=== PATIENT | female | born 1965 | race Caucasian/White ===

== ENCOUNTER 2024-12-31 11:21 | Inpatient (IN) ==
--- NOTE | 2024-12-31 11:52 | Emergency Department Note ---
Impression & Plan Syncope, Elevated troponin, Hypoxia ED Provider Note NAME: JADE NORIEGA AGE: 59 SEX: F : 1965 ARRIVES VIA: Ambulance INFORMANT: Patient, ED PROVIDER(S): Dima Sagastume MD CHIEF COMPLAINT: Unresponsive MEDICAL DECISION MAKING: Patient presents due to concern for an episode of being unresponsive. IV was established and blood work obtained along with chest x-ray and CT head. Bio fire also obtained as the patient was hypoxemic. Patient's blood work shows a normal white count hemoglobin and platelet count. The patient's kidney function was unremarkable. Glucose of 149. The patient's initial troponin was 50.3. Urinalysis does not show evidence of obvious infection leuks and whites present but no bacteria or nitrates. Patient denies any urinary symptoms. UDS negative. Patient's chest x-ray and CT head are negative. Currently denies any chest pain. I did speak with the on-call hospitalist service after informing the patient of the findings. Patient was admitted by Dr. Anderson. Critical Care: I have personally spent 37 minutes of critical care time in direct management of this patient. This includes bedside care, interpretation of diagnostic studies, and testing, discussion with consultants, patient, and family members, and other require inpatient management activities. This 37 minutes is in excess of all separately billable procedures. Discussion w/ other healthcare providers: Kenneth Anderson inpatient medicine service Prior /Outside records reviewed: None Differential diagnosis: Vasovagal event, dehydration, infection, hypoglycemia, electrolyte abnormalities, arrhythmia, pulmonary embolism, seizure among others were considered. Diagnostics, as interpreted by me: ECG:Sinus tachycardia, rate of 111, normal intervals, left axis deviation no obvious ST elevations. No prior EKGs for comparison. Cardiac monitoring: An order was placed for continuous cardiac monitoring. The monitor shows a rate of 95 with regular rhythm. Patient was placed on pulse oximetry Medical decision rules: None Imaging studies: I informally interpreted the patient's chest x-ray does not show obvious pneumonia or pneumothorax with formal report to follow. HPI: Patient presents due to concern for syncope. Reportedly was at her desk snoring unresponsive for several minutes. The patient denies any presyncopal symptoms including dizziness lightheadedness palpitations irregular heartbeat or skipping a beat. 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 No reported falls or trauma as this occurred while she was seated at a desk. She denies any tongue biting or incontinence. She has not seen a physician in 30 years and has no known past medical history. Patient denies any alcohol tobacco or drug use. Patient was reportedly hypoxemic at 89% was placed on nasal cannula. Patient's BSG prior to arrival was in the 150s. Patient denies any prior history of DVT or PE. 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 Denies tobacco use. HOME MEDICATIONS: See Below ALLERGIES: See Below VITALS: See Below PHYSICAL EXAMINATION: GENERAL: NAD, non-toxic. Wearing glasses, nasal cannula in place. EYE EXAM: Normal conjunctiva. PERRL, no anisocoria and EOM's grossly intact w/o pain. OROPHARYNX: Moist mucus membranes, grossly normal dentition. NECK: Trachea midline, no stridor. LUNGS: Clear to auscultation. Normal chest wall mechanics. HEART: NSR, no MRG. ABDOMEN: Abdomen soft, non-tender, no masses, no rebound or guarding. BACK: No CVA TTP. SKIN: No rashes and no bruising. UPPER EXTREMITIES: Upper extremities are grossly normal. LOWER EXTREMITIES: Grossly normal, no edema. Negative Homans' sign bilaterally. NEURO EXAM: Awake and alert, follows commands, no obvious facial asymmetry, normal speech, moves all 4 extremities. Past Med/Surg History Problem List (Updated 12/31/24 @ 19:14 by Dima Sagastume MD) Hypoxia (Acute) Elevated troponin (Acute) Syncope (Acute) Social History Smoking Status: Never smoker Hx Alcohol Use: No Hx Substance Use: No Preferred Language: Urdu Communication Ability: Effective Retail Loss Prevention Investigator Required: No Beliefs That Will Affect Care: None Current Living Situation: Spouse Feels Safe at Home: Yes Safety Concerns: Feels Safe At This Time Assistive Devices: Contacts Allergies Allergies Allergy/AdvReac Type Severity Reaction Status Date / Time No Known Allergies Allergy Unverified 12/31/24 14:10 Home Meds Home Medications Medication Instructions Recorded Confirmed No Known Home Medications 12/31/24 12/31/24 Results & Data (ED) Vital Signs Vital Signs - 24 hr 12/31/24 11:37 12/31/24 11:41 12/31/24 11:41 Temperature 36.9 C Temperature Source Oral Pulse Rate 120 H 116 H Pulse Rate [Apical] Respiratory Rate 20 Respiratory Effort / Characteristics Respiratory Depth Blood Pressure 159/87 H Blood Pressure [Left Arm] Blood Pressure Mean 111 Blood Pressure Mean [Left Arm] Pulse Oximetry 94 88 L Oxygen Delivery Method Nasal Cannula Room Air Nasal Cannula Oxygen Flow Rate 2 0 Sepsis Recent Fever Within 48 Hours No Sepsis New/Unexplained Change in Mental Status No Sepsis Action Taken by Nursing No Action Required Oxygen Flow Rate - Titration 2 Pulse Oximetry Post Tiitration 94 12/31/24 11:48 12/31/24 13:42 Temperature Temperature Source Pulse Rate Pulse Rate [Apical] 98 H Respiratory Rate 18 Respiratory Effort / Characteristics Non-Labored Spontaneous Respiratory Depth Normal Blood Pressure Blood Pressure [Left Arm] 136/109 H Blood Pressure Mean Blood Pressure Mean [Left Arm] 118 Pulse Oximetry 92 94 Oxygen Delivery Method Nasal Cannula Room Air Oxygen Flow Rate 2 Sepsis Recent Fever Within 48 Hours Sepsis New/Unexplained Change in Mental Status Sepsis Action Taken by Nursing Oxygen Flow Rate - Titration Pulse Oximetry Post Tiitration Home Medications Current Medication List: was personally reviewed by me Laboratory Data Attestation: I reviewed the patient's lab results. 12/31/24 11:40 12/31/24 11:40 Lab Results 12/31/24 12/31/24 Range/Units 11:40 12:55 WBC 7.43 (4.8-10.8) K/ul RBC 4.84 (4.20-5.40) M/uL Hgb 15.3 (12.0-16.0) g/dl Hct 45.0 (37.0-47.0) % MCV 93.0 (80.0-100.0) fL MCH 31.6 (25.0-34.0) pg MCHC 34.0 (32.0-36.0) g/dL RDW Std Deviation 42.0 (36.4-46.3) fL RDW Coeff of Sindy 12.1 (11.5-14.5) % Plt Count 284 (130-400) K/uL MPV 10.2 (9.4-12.4) fL Immature Gran % (Auto) 0.3 % Neut % (Auto) 42.1 % Lymph % (Auto) 47.9 % [place] % (Auto) 6.1 % Eos % (Auto) 2.7 % Baso % (Auto) 0.9 % Neut # (Auto) 3.13 (1.40-6.50) K/uL Lymph # (Auto) 3.56 H (1.20-3.40) K/uL [place] # (Auto) 0.45 (0.11-0.59) K/uL Eos # (Auto) 0.20 (0.00-0.50) K/uL Baso # (Auto) 0.07 (0.00-0.20) K/uL Immature Gran # (Auto) 0.02 (0.01-0.20) K/uL D-Dimer 1430 H* (0-500) ug/L FEU Sodium 138 (136-145) mmol/L Potassium 3.5 (3.5-5.1) mmol/L Chloride 102 (98-107) mmol/L Carbon Dioxide 20 L (21-32) mmol/L Anion Gap 16 H (3-11) BUN 10 (6-23) mg/dl Creatinine 0.96 (0.6-1.2) mg/dl Est Cr Clr Drug Dosing 64.0 ml/min eGFR 67.73 BUN/Creatinine Ratio 10.4 (10-20) Glucose 149 H (70-99(Fasting)) mg/dl Calcium 9.3 (8.6-10.3) mg/dl Magnesium 2.2 (1.7-2.4) mg/dl Total Bilirubin 0.8 (0.2-1.0) mg/dl AST 37 (13-39) U/L ALT 38 (7-52) U/L Alkaline Phosphatase 70 (34-104) U/L Total Protein 8.2 (6.0-8.3) gm/dl Albumin 4.5 (3.4-5.0) gm/dl Globulin 3.7 (2.5-4.0) gm/dl Albumin/Globulin Ratio 1.2 (0.9-2) Urine Color Yellow Urine Appearance Clear (Clear) Urine pH 5.5 (4.5-7.5) Ur Specific [place] 1.013 (1.000-1.030) Urine Protein 1+ H (Negative) Urine Glucose (UA) Negative (Negative) Urine Ketones Trace H (Negative) Urine Blood Negative (Negative) Urine Nitrite Negative (Negative) Urine Bilirubin Negative (Negative) Urine Urobilinogen Negative (Negative) Ur Leukocyte Esterase 2+ H (Negative) Urine WBC (Auto) 6-10 H (0-5) /hpf Urine RBC (Auto) 0-2 (0-2) /hpf U Hyaline Cast (Auto) 3-5 H (0-2) /lpf U Epithel Cells (Auto) 0-2 (0-2) /hpf Urine Bacteria (Auto) None Seen (None Seen) Urine Comment Urine Opiates Screen Neg (Neg) Ur Methadone, Qual Neg (Neg) Urine Fentanyl Screen Neg (Neg) Urine Barbiturates Neg (Neg) Ur Phencyclidine (PCP) Neg (Neg) U Amphetamin/Meth Scrn Neg (Neg) MDMA (Ecstasy) Screen Neg (Neg) U Benzodiazepines Scrn Neg (Neg) Ur Cocaine Metabolite Neg (Neg) U Marijuana (THC) Screen Neg (Neg) Administered Medications Sodium Chloride (Nss) 1,000 mls @ 75 mls/hr IV .[id number] VANDANA Stop: 01/03/25 16:29 Last Admin: 12/31/24 17:12 Dose: 75 mls/hr Documented By: REX Discontinued Medications Ioversol (Optiray 320 125ml) 115 ml IV ONCE ONE Stop: 12/31/24 15:52 Last Admin: 12/31/24 15:51 Dose: 115 ml Documented By: TOYA Imaging Data Radiologist's Impression: Chest X-Ray 12/31/24 11:52 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 No consolidation or pleural effusion. No pneumothorax. IMPRESSION: No acute findings. ACT 112: Negative or not required by law. Electronically signed by: Alfredo Prajapati M.D. 12/31/2024 12:[address] 12/31/24 11:52 CT SCAN OF THE BRAIN WITHOUT IV CONTRAST CLINICAL HISTORY: Syncope. COMPARISON STUDY: None. TECHNIQUE: Unenhanced axial CT scan of the brain was performed from the vertex to the skull base. A dose lowering technique was utilized adhering to the principles of ALARA. CT DOSE: 547.75 mGy.cm FINDINGS: Brain parenchyma: No acute intracranial hemorrhage, midline shift or mass effect is present. Stovall-white matter differentiation is preserved. There are no extra- axial fluid collections. There are no findings to suggest acute dural sinus thrombosis or acute territorial infarct. Ventricles, sulci, cisterns: There is no hydrocephalus. The basal cisterns are patent. Calvarium: There are no calvarial fractures. Sinuses and mastoids: The visualized paranasal sinuses are clear. The mastoid air cells are well pneumatized. Orbits: The bony orbits are grossly intact. IMPRESSION: No acute intracranial findings. ACT 112: Negative or not required by law. Electronically signed by: Luisito West M.D. 12/31/2024 12:47 PM Discharge Plan Visit Data Chief Complaint: Syncope ED Provider: Dima Sagastume Discharge Problem: Syncope, Elevated troponin, Hypoxia Patient Disposition: Admitted As Inpatient Condition: Good Discharge Instructions Interventions: ED Discharge Assessment Last Done: 12/31/24 15:42 Discharge Problem: Syncope Qualifiers: Syncope type: unspecified Qualified Code(s): R55 - Syncope and collapse
[2024-12-31 12:06] LABS: Hematocrit (blood only) 45.0 % (37.0-47.0); Hemoglobin 15.3 g/dl (12.0-16.0); Immature Granulocytes # (auto) 0.02 K/uL (0.01-0.20); Immature Granulocytes % (auto) 0.3 %; Mean Corpuscular Hemoglobin 31.6 pg (25.0-34.0); Mean Corpuscular Volume 93.0 fL (80.0-100.0); Platelet Count 284 K/uL (130-400); RDW Standard Deviation 42.0 fL (36.4-46.3); Red Blood Count 4.84 M/uL (4.20-5.40); White Blood Count 7.43 K/ul (4.8-10.8)
[2024-12-31 12:24] LABS: Alanine Aminotransferase 38.0 U/L (7-52); Albumin Globulin Ratio 1.2 (0.9-2); Alkaline Phosphatase 70.0 U/L (34-104); Anion Gap 16.0 (3-11); Bilirubin,Total 0.8 mg/dl (0.2-1.0); Blood Urea Nitrogen 10.0 mg/dl (6-23); Calcium 9.3 mg/dl (8.6-10.3); Carbon Dioxide 20.0 mmol/L (21-32); Chloride 102.0 mmol/L (98-107); Creatinine Clr Calc Pharmacy 64.0 ml/min; Globulin 3.7 gm/dl (2.5-4.0); Glucose 149.0 mg/dl (70-99(Fasting)); Magnesium 2.2 mg/dl (1.7-2.4); Potassium 3.5 mmol/L (3.5-5.1); Sodium 138.0 mmol/L (136-145); Total Protein 8.2 gm/dl (6.0-8.3)
--- NOTE | 2024-12-31 12:32 | XRay Report ---
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 No consolidation or pleural effusion. No p neumothorax. IMPRESSION: No acute findings. ACT 112: Negative or not required by law. Electronically signed by: Alfredo Prajapati M.D. 12/31/2024 12:31 PM
--- NOTE | 2024-12-31 12:49 | CT Scan Report ---
CT SCAN OF THE BRAIN WITHOUT IV CONTRAST CLINICAL HISTORY: Syncope. COMPARISON STUDY: None. TECHNIQUE: Unenhanced axial CT scan of the brain was performed from the vertex to the skull base. A dose lowering technique was utilized adhering to the principles of ALARA. CT DOSE: 547.75 mGy.cm FINDINGS: Brain parenchyma: No acute intracranial hemorrhage, midline shift or mass effect is present. Stovall-whi te matter differentiation is preserved. There are no extra-axial fluid collections. There are no find ings to suggest acute dural sinus thrombosis or acute territorial infarct. Ventricles, sulci, cisterns: There is no hydrocephalus. The basal cisterns are patent. Calvarium: There are no calvarial fractures. Sinuses and mastoids: The visualized paranasal sinuses are clear. The mastoid air cells are well pneu matized. Orbits: The bony orbits are grossly intact. IMPRESSION: No acute intracranial findings. ACT 112: Negative or not required by law. Electronically signed by: Luisito West M.D. 12/31/2024 12:47 PM
[2024-12-31 13:08] LABS: Appearance Urine Clear (Clear); Bacteria Urine Automated None Seen (None Seen); Epithelial Cell Urine Auto 0-2 /hpf (0-2); Glucose Urine UA Negative (Negative); RBC Urine Automated 0-2 /hpf (0-2)
[2024-12-31 13:47] LABS: Amphetamines+Metham, Urine Neg (Neg); MDMA (Ecstacy), Urine Neg (Neg); Marijuana, Urine Neg (Neg)
[2024-12-31 14:40] LABS: Base Excess VBG 2.4 mEq/L; HCO3 VBG 28 mmol/L; Oxygen Saturation VBG < 60.0 %; PCO2 VBG 45 mmHg (38-50); PO2 VBG 22 mmHg; pH VBG 7.40 (7.36-7.41)
--- NOTE | 2024-12-31 14:48 | History & Physical Report ---
Date of Service December 31, 2024 Assessment & Plan (1) Syncope: Plan: 59 year old female with no known past medical history presenting with syncopal episode. SYNCOPE presents with syncopal episode with no prodrome no signs of underlying infection at this time r/o Acute PE D dimer 1400 check CTA chest Doppler US of legs if above negative r/o Arrhythmia EKG Sinus rhythm Trop negative echo ordered will need Zio patch monitor if inpatient Telemetry does not reveal arrhythmia r/o Neurologic etiology CT head wo contrast: no acute CVA will need Brain MRI, MRA tomorrow (patient already receiving IV contrast dye today) EEG r/o Orthostasis Ortho VS r/o possible underlying Sleep Apnea, Nocturnal Hypoxemia will order nocturnal Pulse Ox HIGH ANION GAP anion gap 16, HCO3 20 VBG 7.4/45/22/28 BSG 149 lactic acid normal check salicylate, methanol, etc for completion EPISODE OF HYPOXIA 88% on room air, improved to 99% on room air with no intervention CXR: unrevealing CT angio chest ordered DVT prophylaxis Lovenox SC daily Full Code Disposition pending lives at home History of Present Illness Chief Complaint: syncope Primary Care Provider: NO PCP 59 year old female with no known past medical history presenting with syncopal episode. As per patient, she does have any past medical history and is not taking any medications on a regular basis. Patient states she has been feeling fine- no fever/chills, headache, dizziness, sore throat, cough, shortness of breath, abdominal pain, nausea/vomiting, diarrhea, problems with urination. She denies having episodes of lightheadedness, palpitations, presyncope or syncope. 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 She was sitting on her chair doing deskwork and the next thing she recalls is waking up and seeing EMS crew and the police surrounding her. She was somewhat confused initially but was oriented x 3 afterwards. She does not recall feeling dizzy, shortness of breath, or having chest pain, palpitations, before the syncopal event. At the ER, VS were 159/87, HR 116, 88% on room air, 36.09. Patient's o2 sats improved later on to 99% on room air. trop negative EKG no signs of acute ischemia CT head: no acute findings CXR: no infiltrates, effusion UA: no signs of UTI Anion Gap 16 CO2 20 7.4/45/22/28 On my exam, patient seen resting in bed, comfortable, not in distress, in good spirits. States she feels fine overall. Denies headache, dizziness, shortness of breath, chest pain, palpitations, etc No other symptoms. Allergies Allergy/AdvReac Type Severity Reaction Status Date / Time No Known Allergies Allergy Unverified 12/31/24 14:10 Home Medications Medication Instructions Recorded Confirmed Type No Known Home Medications 12/31/24 12/31/24 History Past Med/Surg History Problem List (Updated 12/31/24 @ 16:00 by Bartolome Anderson MD) Syncope Social History Smoking Status: Never smoker Preferred Language: [place] Feels Safe at Home: Yes Review of Systems Review of Systems: all noted and negative except for above Physical Exam Physical Exam: General- oriented x 3, not in distress, speaks in sentences with no effort or accessory muscle use Head- atraumatic Eyes- PERRL, EOMI, anicteric ENT- oropharynx clear Neck- supple, no JVD, no adenopathy, no thyromegaly; carotids +2/2, no bruits appreciated Lungs- clear to auscultation bilaterally, no rales/wheezes Heart- normal rate, regular rhythm; no murmur, no gallop, no rub appreciated Abdomen- normal bowel sounds, nondistended, soft, nontender, no masses or hepatosplenomegaly Extremities- no pretibial edema, no calf tenderness; peripheral pulses intact Neuro- alert, oriented x 3; CN 2-12 grossly intact; motor 5/5 bilaterally;sensation 100% on all extremities; no other gross focal neurologic deficits Skin- warm & dry Results & Data Results & Data Vital Signs (Past 12 Hours) Vital Signs Temp Pulse Pulse Resp BP BP Pulse Ox 12/31/24 13:42 98 H 18 136/109 H 94 12/31/24 11:48 92 12/31/24 11:41 88 L 12/31/24 11:41 36.9 C 116 H 20 159/87 H 94 12/31/24 11:37 120 H O2 Del Method O2 Flow Rate 12/31/24 13:42 Room Air 12/31/24 11:48 Nasal Cannula 2 12/31/24 11:41 Room Air, Nasal Cannula 0 12/31/24 11:41 Nasal Cannula 2 12/31/24 11:37 all noted and reviewed including below Code Status & VTE Plan VTE Prophylaxis Plan VTE Prophylaxis will be ordered: Yes
[2024-12-31] MEDS: OPTIRAY 320 125ml IV ONE (15:51)
[2024-12-31] MEDS ORDERED: ONDANSETRON INJ 2 MG/ML 2 ML VIAL IV PRN (16:04)
--- NOTE | 2024-12-31 16:51 | CT Scan Report ---
Clinical history: Syncope Technique: Axial computed tomography images were obtained of the brain after the administration of intravenous contrast according to the CT angiogram protocol Findings: No definite stenosis or aneurysm is seen of the anterior, middle, or posterior cerebral artery circulations. The visualized vertebral arteries and the basilar artery appear unremarkable Impression: No definite stenosis or aneurysm of the intracranial arteries Electronically signed by Donny Forte 12-31-2024 4:51 PM
--- NOTE | 2024-12-31 17:04 | CT Scan Report ---
Clinical history: Syncope Technique: Axial computed tomography images were obtained of the neck after the administration of intravenous contrast according to the CT angiogram protocol Findings: No stenosis is seen of the common carotid arteries bilaterally. The carotid bulbs are patent. The remainder of the internal carotid arteries appear patent bilaterally. No stenosis of the external carotid arteries is seen The vertebral arteries are patent bilaterally with no significant stenosis seen. The visualized thoracic aorta appears unremarkable Impression: No definite stenosis of the neck arteries Electronically signed by Donny Forte 12-31-2024 5:04 PM
--- NOTE | 2024-12-31 17:06 | CT Scan Report ---
Technique: Axial computed tomography images were obtained of the chest after the administration of intravenous contrast according to the CT angiogram protocol Findings: There is no definite sign of pulmonary embolism. There is subsegmental atelectasis in both lower lobes. The lungs otherwise appear clear without infiltrate or mass. There is no pleural effusion or pneumothorax. There is no sign of pulmonary fibrosis or other diffuse interstitial process. No endobronchial lesion is seen There is no mediastinal, hilar, or axillary adenopathy. The thoracic aorta appears unremarkable with no sign of aneurysm or dissection. There is no pericardial effusion The visualized upper abdomen appears unremarkable. No fracture is seen. No focal osseous lesion is evident Impression: 1. No definite sign of pulmonary embolism 2. Mild bilateral lower lobe atelectasis Electronically signed by Donny Forte 12-31-2024 5:06 PM
[2024-12-31] MEDS: SODIUM CHLORIDE 0.9% 1,000 ML IV SCH (17:12)
[2024-12-31] MEDS: ACETAMINOPHEN 325 MG TAB PO PRN (19:52)
--- NOTE | 2024-12-31 21:44 | Ultrasound Report ---
EXAM: US venous doppler LE BI CLINICAL HISTORY: Elevated d-dimer R/O DVT. TECHNIQUE: Ultrasound examination of bilateral lower extremity veins was performed in real time and duplex. One or more of the following were performed- spectral analysis, resistive index, waveform analysis, and pulsed Doppler. COMPARISON: None. FINDINGS: Normal phasic, non-pulsatile, and spontaneous flow is noted in the bilateral common femoral, Great saphenous vein, profunda, femoral, popliteal, anterior, and posterior tibial and peroneal veins. Right peroneal vein with limited views however, flow on color Doppler noted, possibly due to local edema. Visualized veins of both lower extremities demonstrate normal compressibility. No sonographic evidence of acute deep vein thrombosis (DVT) is detected in the visualized veins of both lower extremities. Compression and Augmentation: All evaluated veins compress fully with the applied transducer pressure. Augmentation of venous flow is noted with distal compression. Additional Findings: No evidence of intraluminal thrombus. IMPRESSION: No sonographic evidence of acute DVT was detected in bilaterally visualized and lower extremity arteries at this time of exam. Disclaimer: DVT could be missed early in the disease when clot burden is minimal. For patients with moderate and high pretest probability of DVT and negative ultrasound, the [employer] clinical guidelines recommend testing with a D-dimer assay or repeat ultrasound in 5-7 days. If symptoms worsen, the Society of radiologists in ultrasound recommends repeating ultrasound even earlier. Electronically signed by Zhao Barr 12-31-2024 9:43 PM
[2025-01-01 05:32] LABS: Appearance Urine Clear (Clear); Bacteria Urine Automated None Seen (None Seen); Cast Urine Automated 0-2 /lpf (0-2); Epithelial Cell Urine Auto 0-2 /hpf (0-2); Glucose Urine UA Negative (Negative); RBC Urine Automated 0-2 /hpf (0-2)
[2025-01-01 06:57] LABS: Hematocrit (blood only) 39.7 % (37.0-47.0); Hemoglobin 13.7 g/dl (12.0-16.0); Immature Granulocytes # (auto) 0.02 K/uL (0.01-0.20); Immature Granulocytes % (auto) 0.3 %; Mean Corpuscular Hemoglobin 31.9 pg (25.0-34.0); Mean Corpuscular Volume 92.3 fL (80.0-100.0); Platelet Count 240 K/uL (130-400); RDW Standard Deviation 41.6 fL (36.4-46.3); Red Blood Count 4.30 M/uL (4.20-5.40); White Blood Count 7.33 K/ul (4.8-10.8)
[2025-01-01 07:26] LABS: Alanine Aminotransferase 28.0 U/L (7-52); Albumin Globulin Ratio 1.3 (0.9-2); Alkaline Phosphatase 56.0 U/L (34-104); Anion Gap 7.0 (3-11); Bilirubin,Total 1.3 mg/dl (0.2-1.0); Blood Urea Nitrogen 9.0 mg/dl (6-23); Calcium 8.6 mg/dl (8.6-10.3); Carbon Dioxide 26.0 mmol/L (21-32); Chloride 107.0 mmol/L (98-107); Creatinine Clr Calc Pharmacy 90.6 ml/min; Globulin 3.0 gm/dl (2.5-4.0); Glucose 120.0 mg/dl (70-99(Fasting)); Potassium 3.8 mmol/L (3.5-5.1); Sodium 140.0 mmol/L (136-145); Total Protein 6.8 gm/dl (6.0-8.3)
[2025-01-01 08:10] LABS: Hemoglobin A1C 5.7 % (4.5-5.6)
--- NOTE | 2025-01-01 14:28 | Hospitalist Progress Note ---
Date of Service January 01, 2025 Assessment & Plan (1) Syncope: Plan: 59 year old female with no known past medical history presenting with syncopal episode. SYNCOPE Presents with syncopal episode with no prodrome No signs of underlying infection at this time CTA of the chest did not show any pulmonary embolism, CTA of the neck and head did not show any stenosis, ultrasound of the legs no DVT and CT of the head no acute findings Neurologically intact without any significant symptoms since admission Awaiting EEG report and also MRI of the head Did not have any orthostatic changes or symptoms She has been ambulating in the hallway in the room without difficulties Did not have any arrhythmias and her echo has been unremarkable She will be discharged home this afternoon after the MRI has been completed Will have a Zio patch placement as an outpatient on discharge R/O possible underlying Sleep Apnea, Nocturnal Pulse Ox- has been negative Will advise outpatient polysomnography HIGH ANION GAP anion gap 16, HCO3 20 VBG 7.4/45/22/28 BSG 149 lactic acid normal check salicylate, methanol, etc for completion EPISODE OF HYPOXIA 88% on room air, improved to 99% on room air with no intervention CXR: unrevealing CT angio chest ordered- as above DVT prophylaxis Lovenox SC daily Full Code Disposition likely discharge this afternoon Admission and Anticipated Discharge Date Admission Date: December 31, 2024 Subjective 01/01/2025 The patient was seen and examined in the medical telemetry unit She was admitted with a syncopal episode that happened while she was working on her office desk She was not responding to command and was slumped on the desk does not remember if she lost any consciousness or not Has not had this kind of problem before and denies any symptoms on coming around Remained stable in the hospital Review of Systems Review of Systems: All systems reviewed and are unremarkable except as noted below Physical Exam Physical Exam: Sitting on a chair without any acute distress Constitutional: well developed, well nourished and + obese; not ill appearing Eyes: PERRL, conjunctivae normal, anicteric sclerae ENMT: external ear and nose normal, oropharynx normal Neck: trachea midline, no thyromegaly Respiratory: no respiratory distress Auscultation: lungs clear to auscultation bilaterally Cardiovascular: Rate/Rhythm: regular rate and regular rhythm; not tachycardic Heart Sounds: normal S1 and normal S2; no murmur Extremities: + edema (Trace edema bilaterally) Gastrointestinal (Abdomen): Inspection/Auscultation: normal bowel sounds; abdomen not distended Percussion/Palpation: abdomen soft; abdomen nontender Musculoskeletal: No acute arthritis involving any of the joint Neurologic: normal touch/pain/proprioception and moves all extremities; no focal motor deficits and not confused Psychiatric: A+Ox3, euthymic affect Lymphatic: no cervical or axillary lymphadenopathy Results & Data Results & Data Vital Signs (Past 12 Hours) Vital Signs Temp Pulse Pulse Pulse Resp BP Pulse Ox 01/01/25 13:49 90 01/01/25 11:47 36.8 C 84 16 160/85 H 96 01/01/25 07:39 37.3 C 82 16 134/86 96 01/01/25 07:16 74 01/01/25 02:19 74 Pulse Ox O2 Del Method O2 Del Method 01/01/25 13:49 01/01/25 11:47 Room Air 01/01/25 07:39 Room Air 01/01/25 07:16 01/01/25 02:19 93 Room Air Laboratory Results Short CBC 01/01/25 Range/Units 06:34 WBC 7.33 (4.8-10.8) K/ul Hgb 13.7 (12.0-16.0) g/dl Hct 39.7 (37.0-47.0) % Plt Count 240 (130-400) K/uL BMP 01/01/25 06:34 Sodium 140 Potassium 3.8 Chloride 107 Carbon Dioxide 26 BUN 9 Creatinine 0.77 Glucose 120 H Calcium 8.6 Liver Function 01/01/25 Range/Units 06:34 Total Bilirubin 1.3 H D (0.2-1.0) mg/dl AST 27 (13-39) U/L ALT 28 (7-52) U/L Alkaline Phosphatase 56 (34-104) U/L Albumin 3.8 (3.4-5.0) gm/dl Urine 01/01/25 Range/Units 02:30 Urine Color Yellow Urine Appearance Clear (Clear) Urine pH 6.0 (4.5-7.5) Ur Specific [place] 1.020 (1.000-1.030) Urine Protein Negative (Negative) Urine Glucose (UA) Negative (Negative) Medications Administered Current Inpatient Medications Acetaminophen (Acetaminophen 325 Mg Tab) 650 mg PO Q4H PRN PRN Reason: Pain or Fever Stop: 01/30/25 16:03 Last Admin: 12/31/24 19:52 Dose: 650 mg Sodium Chloride (Nss) 1,000 mls @ 75 mls/hr IV .[id number] VANDANA Stop: 01/03/25 16:29 Last Admin: 01/01/25 07:54 Dose: 75 mls/hr Ondansetron HCl (Ondansetron Inj 2 Mg/Ml 2 Ml Vial) 4 mg IV Q6H PRN PRN Reason: Nausea Stop: 01/30/25 16:03 Discharge (1) Syncope Syncope type: unspecified Qualified Code(s): R55 - Syncope and collapse
--- NOTE | 2025-01-01 19:45 | Magnetic Resonance Report ---
Clinical History: Passed out Technique: Multiple T1 and T2-weighted magnetic resonance images were obtained of the brain without gadolinium contrast Findings: There is no sign of acute or old infarction with normal-appearing diffusion weighted images. No definite focus of demyelination is seen. No definite mass lesion is seen on this noncontrast study. There is no intracranial hemorrhage or other fluid collection. No midline shift or other form of herniation is seen. There is no hydrocephalus. Normal flow-voids are seen within the arteries of the vcdpod-hl-Dulami. The orbits and paranasal sinuses appear normal. The mastoid air cells appear clear. Impression: Unremarkable noncontrast MRI of the brain Electronically signed by Donny Forte 01-01-2025 7:45 PM
[2025-01-02 00:06] VITALS: RESP 18
[2025-01-02 07:43] VITALS: O2SAT 95
--- NOTE | 2025-01-02 10:14 | Hospitalist Progress Note ---
Date of Service January 02, 2025 Assessment & Plan (1) Syncope: Plan: 59 year old female with no known past medical history presenting with syncopal episode. SYNCOPE Presents with syncopal episode with no prodrome No signs of underlying infection at this time CTA of the chest did not show any pulmonary embolism, CTA of the neck and head did not show any stenosis, ultrasound of the legs no DVT and CT of the head no acute findings Neurologically intact without any significant symptoms since admission Awaiting EEG report and also MRI of the head Did not have any orthostatic changes or symptoms She has been ambulating in the hallway in the room without difficulties Did not have any arrhythmias and her echo has been unremarkable She will be discharged home this afternoon after the MRI has been completed Will have a Zio patch placement as an outpatient on discharge Remains medically stable and asymptomatic Will be discharged home this afternoon R/O possible underlying Sleep Apnea, Nocturnal Pulse Ox- has been negative Will advise outpatient polysomnography EEG is pending HIGH ANION GAP anion gap 16, HCO3 20 VBG 7.4/45/22/28 BSG 149 lactic acid normal check salicylate, methanol, etc for completion EPISODE OF HYPOXIA 88% on room air, improved to 99% on room air with no intervention CXR: unrevealing CT angio chest ordered- as above DVT prophylaxis Lovenox SC daily Full Code Disposition Discharged this afternoon Admission and Anticipated Discharge Date Admission Date: December 31, 2024 Subjective 01/01/2025 The patient was seen and examined in the medical telemetry unit She was admitted with a syncopal episode that happened while she was working on her office desk She was not responding to command and was slumped on the desk does not remember if she lost any consciousness or not Has not had this kind of problem before and denies any symptoms on coming around Remained stable in the hospital 01/02/2025 The patient was seen and examined in medical telemetry unit She has been stable No arrhythmias and no symptoms She has been ambulating in the room and in the hallway without any difficulties She will be discharged home this afternoon Review of Systems Review of Systems: All systems reviewed and are unremarkable except as noted below Physical Exam Physical Exam: Sitting on a chair without any acute distress Constitutional: well developed, well nourished and + obese; not ill appearing Eyes: PERRL, conjunctivae normal, anicteric sclerae ENMT: external ear and nose normal, oropharynx normal Neck: trachea midline, no thyromegaly Respiratory: no respiratory distress Auscultation: lungs clear to auscultation bilaterally Cardiovascular: Rate/Rhythm: regular rate and regular rhythm; not tachycardic Heart Sounds: normal S1 and normal S2; no murmur Extremities: + edema (Trace edema bilaterally) Gastrointestinal (Abdomen): Inspection/Auscultation: normal bowel sounds; abdomen not distended Percussion/Palpation: abdomen soft; abdomen nontender Neurologic: normal touch/pain/proprioception and moves all extremities; no focal motor deficits and not confused Psychiatric: A+Ox3, euthymic affect Lymphatic: no cervical or axillary lymphadenopathy Results & Data Results & Data Vital Signs (Past 12 Hours) Vital Signs Temp Pulse Pulse Resp BP Pulse Ox O2 Del Method 01/02/25 09:36 73 01/02/25 07:42 36.9 C 18 95 Room Air 01/02/25 04:00 36.6 C 73 18 141/82 H 94 Room Air 01/01/25 23:00 36.7 C 88 18 142/76 H 94 Room Air Medications Administered Current Inpatient Medications Acetaminophen (Acetaminophen 325 Mg Tab) 650 mg PO Q4H PRN PRN Reason: Pain or Fever Stop: 01/30/25 16:03 Last Admin: 01/01/25 20:09 Dose: 650 mg Sodium Chloride (Nss) 1,000 mls @ 75 mls/hr IV .[id number] VANDANA Stop: 01/03/25 16:29 Last Admin: 01/02/25 09:21 Dose: 75 mls/hr Ondansetron HCl (Ondansetron Inj 2 Mg/Ml 2 Ml Vial) 4 mg IV Q6H PRN PRN Reason: Nausea Stop: 01/30/25 16:03 (1) Syncope Syncope type: unspecified Qualified Code(s): R55 - Syncope and collapse
--- NOTE | 2025-01-02 10:57 | Electroencephalogram ---
EEG Procedure Note Date of Service January 01, 2025 Start / End Times Start Time: 604 End Time: [address] Bartolome Anderson History A 59-year-old female with syncope. EEG performed for evaluation of epileptiform activity. Home Medication List Medication Instructions Recorded Confirmed Type No Known Home Medications 12/31/24 12/31/24 History Inpatient Medication List Acetaminophen (Acetaminophen 325 Mg Tab) 650 mg PO Q4H PRN PRN Reason: Pain or Fever Stop: 01/30/25 16:03 Last Admin: 01/01/25 20:09 Dose: 650 mg Documented By: Admin: 12/31/24 19:52 Dose: 650 mg Documented By: CHELY Sodium Chloride (Nss) 1,000 mls @ 75 mls/hr IV .[id number] VANDANA Stop: 01/03/25 16:29 Last Admin: 01/02/25 09:21 Dose: 75 mls/hr Documented By: Infusion: 01/02/25 09:21 Dose: Infused Documented By: Admin: 01/01/25 20:08 Dose: 75 mls/hr Documented By: Infusion: 01/01/25 20:08 Dose: Infused Documented By: Admin: 01/01/25 07:54 Dose: 75 mls/hr Documented By: Infusion: 01/01/25 06:32 Dose: Infused Documented By: Admin: 12/31/24 17:12 Dose: 75 mls/hr Documented By: REX Discontinued Medications Ioversol (Optiray 320 125ml) 115 ml IV ONCE ONE Stop: 12/31/24 15:52 Last Admin: 12/31/24 15:51 Dose: 115 ml Documented By: TOYA Description This is a 21 electrode EEG with a single channel dedicated to limited EKG. The electrodes were placed in accordance with the International 10-20 system. Report: At the onset of the EEG the patient is awake. The background is symmetric. There was a normal anterior to posterior gradient. The posterior dominant rhythm is 9 hertz. Drowsiness is characterized by some increased theta activity with reduced blink rate, and decreased myogenic artifact. Photic stimulation does not induce any abnormalities. No stage 2 sleep transients are seen. Interpretation Impression: This is a normal awake and drowsy routine EEG. There is no evidence of epileptiform activity.
[2025-01-02 11:26] VITALS: BP 166/92; PULSE 85; TEMP 98.8
--- NOTE | 2025-01-02 16:56 | Discharge Summary ---
Date of Service January 02, 2025 Admission HPI Per Admitting Provider 59 year old female with no known past medical history presenting with syncopal episode. As per patient, she does have any past medical history and is not taking any medications on a regular basis. Patient states she has been feeling fine- no fever/chills, headache, dizziness, sore throat, cough, shortness of breath, abdominal pain, nausea/vomiting, diarrhea, problems with urination. She denies having episodes of lightheadedness, palpitations, presyncope or syncope. 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 She was sitting on her chair doing deskwork and the next thing she recalls is waking up and seeing EMS crew and the police surrounding her. She was somewhat confused initially but was oriented x 3 afterwards. She does not recall feeling dizzy, shortness of breath, or having chest pain, palpitations, before the syncopal event. At the ER, VS were 159/87, HR 116, 88% on room air, 36.09. Patient's o2 sats improved later on to 99% on room air. trop negative EKG no signs of acute ischemia CT head: no acute findings CXR: no infiltrates, effusion UA: no signs of UTI Anion Gap 16 CO2 20 7.4/45/22/28 On my exam, patient seen resting in bed, comfortable, not in distress, in good spirits. States she feels fine overall. Denies headache, dizziness, shortness of breath, chest pain, palpitations, etc No other symptoms. Admission Exam Per Admitting Provider Physical Exam: General- oriented x 3, not in distress, speaks in sentences with no effort or accessory muscle use Head- atraumatic Eyes- PERRL, EOMI, anicteric ENT- oropharynx clear Neck- supple, no JVD, no adenopathy, no thyromegaly; carotids +2/2, no bruits appreciated Lungs- clear to auscultation bilaterally, no rales/wheezes Heart- normal rate, regular rhythm; no murmur, no gallop, no rub appreciated Abdomen- normal bowel sounds, nondistended, soft, nontender, no masses or hepatosplenomegaly Extremities- no pretibial edema, no calf tenderness; peripheral pulses intact Neuro- alert, oriented x 3; CN 2-12 grossly intact; motor 5/5 bilaterally;sensation 100% on all extremities; no other gross focal neurologic deficits Skin- warm & dry Principal Diagnosis Syncopeno apparent cause found Discharge Exam Sitting on a chair without any acute distress Constitutional well developed, well nourished and + obese; not ill appearing Eyes PERRL, conjunctivae normal, anicteric sclerae ENMT external ear and nose normal, oropharynx normal Neck trachea midline, no thyromegaly Respiratory no respiratory distress Auscultation: lungs clear to auscultation bilaterally Cardiovascular Rate/Rhythm: regular rate and regular rhythm; not tachycardic Heart Sounds: normal S1 and normal S2; no murmur Extremities: + edema (Trace edema bilaterally) Gastrointestinal (Abdomen) Inspection/Auscultation: normal bowel sounds; abdomen not distended Percussion/Palpation: abdomen soft; abdomen nontender Neurologic normal touch/pain/proprioception and moves all extremities; no focal motor deficits and not confused Psychiatric A+Ox3, euthymic affect Lymphatic no cervical or axillary lymphadenopathy Discharge Data Allergies Allergy/AdvReac Type Severity Reaction Status Date / Time No Known Allergies Allergy Unverified 12/31/24 14:10 Consultations 12/31/24 13:10 ED Decision to Admit Stat Ordered Studies 12/31/24 11:52 CT head/brain wo con Stat 12/31/24 15:29 CT angio chest PE protocol Stat CT angio head w con Routine CT angio neck with con Stat 12/31/24 18:42 US venous doppler LE BI Urgent 01/01/25 07:59 MRI Brain [MR brain wo con] Routine Hospital Course (1) Syncope: 59 year old female with no known past medical history presenting with syncopal episode. SYNCOPE Presents with syncopal episode with no prodrome No signs of underlying infection at this time CTA of the chest did not show any pulmonary embolism, CTA of the neck and head did not show any stenosis, ultrasound of the legs no DVT and CT of the head no acute findings Neurologically intact without any significant symptoms since admission Awaiting EEG report and also MRI of the head Did not have any orthostatic changes or symptoms She has been ambulating in the hallway in the room without difficulties Did not have any arrhythmias and her echo has been unremarkable She will be discharged home this afternoon after the MRI has been completed Will have a Zio patch placement as an outpatient on discharge Remains medically stable and asymptomatic Will be discharged home this afternoon EEG has been negative for any seizure R/O possible underlying Sleep Apnea, Nocturnal Pulse Ox- has been negative Will advise outpatient polysomnography EEG is pending HIGH ANION GAP anion gap 16, HCO3 20 VBG 7.4/45/22/28 BSG 149 lactic acid normal check salicylate, methanol, etc for completion EPISODE OF HYPOXIA 88% on room air, improved to 99% on room air with no intervention CXR: unrevealing CT angio chest ordered- as above DVT prophylaxis Lovenox SC daily Full Code Disposition Discharged this afternoon Total Time Total Time Spent Total Time Spent (In Minutes): 35 Minutes Discharge Plan Discharge Items Patient Disposition: Home - Self-Care Reason For Visit: SYNCOPE Discharge Diagnosis: Syncopeno apparent cause found Condition on Discharge: Good Activity: Resume your previous activity Non-emergency contact: Primary Care Provider Call non-emergency contact if: you have any medication questions and your symptoms worsen Follow-up/Referrals: PCP,NO [Primary Care Provider] - (Please make an appointment with your PCP within 7 days) Diet: Regular Addtl Attending Provider Instructions: Please take precautions to avoid falls Strongly advised to have a Zio patch placed from PCPs office Strongly advised to have outpatient sleep study to rule out any sleep apnea Pending Studies at Discharge: Yes Studies:: EEG report Stand-Alone Forms: My [facility] [place] [facility], Work/School Release Medications and DC Order Prescriptions: No Action No Known Home Medications Discharge Orders: Discharge Order (Routine); Ordered 01/02/25 Ordered By: Brian Navas/Other Patient Handouts: What Is Syncope, Treating Syncope: Prevention Admission Data Admit Date/Time: 12/31/24 14:11 Attending Provider: Brian Alvarado Admit Provider: Bartolome Anderson Primary Care Provider: PCP,NO Other Providers: Bartolome Anderson Other Interventions: Discharge Summary Assessment (RN) Last Done: 01/02/25 10:33
--- NOTE | 2025-01-03 05:18 | Electrocardiogram Report ---
Test Reason : Blood Pressure : */* mmHG Vent. Rate : 111 BPM Atrial Rate : 111 BPM P-R Int : 184 ms QRS Dur : 82 ms QT Int : 344 ms P-R-T Axes : 21 -38 30 degrees QTcB Int : 467 ms Sinus tachycardia Possible Left atrial enlargement Left axis deviation Inferior infarct , age undetermined Anterolateral infarct , age undetermined Abnormal ECG No previous ECGs available Confirmed by Brett Escamilla ([id number]) on 01/03/2025 5:18:32 AM Referred By: REFERRED SELF Confirmed By: Brett Escamilla
== END 2025-01-02 12:30 | disposition home or self-care (01) | DRG 312 ==
LOC: ED 11:21 → SUATTDRO 14:11 → 2N 14:11 → UNDODISIN 01-02 11:31